=== PATIENT | male | born 1975 | race American Indian/Alaskan Native ===

== ENCOUNTER 2018-06-28 10:31 | Emergency (ER) | payer SELFPAY ==
[2018-06-28 10:46] VITALS: BP 117/86
[2018-06-28] MEDS ORDERED: IBUPROFEN PO ONE (12:04)
[2018-06-28] MEDS ORDERED: CLEOCIN PO ONE (12:04)
--- NOTE | 2018-06-28 12:10 | Emergency Department Report ---
ED Extremity Problem HPI - General Chief complaint: Extremity Injury, Lower Stated complaint: FOOT PAIN/SWELLING Time Seen by Provider: 06/28/18 11:54 Source: patient Mode of arrival: Ambulatory Limitations: No Limitations - History of Present Illness Initial comments: Patient is a 43-year-old [place] male who is presenting with left foot pain for the last 3 days. Patient states that the left foot started swelling. Patient has tried putting [place] on his feet with no relief. Patient states pain is 6 out of 10 in severity and is aching throbbing. Patient's right foot is within normal limits. Patient denies trauma fevers chills nausea vomiting at this time. - Related Data Previous Rx's Medication Instructions Recorded Last Taken Type Clindamycin [Clindamycin CAP] 300 mg PO Q8H 7 Days cap 06/28/18 Unknown Rx HYDROcodone/APAP 5-325 [[place] 1 each PO Q4HR PRN #12 tablet 06/28/18 Unknown Rx 5/325] Ibuprofen [Motrin] 600 mg PO Q8H PRN #20 tablet 06/28/18 Unknown Rx Allergies Allergy/AdvReac Type Severity Reaction Status Date / Time No Known Allergies Allergy Unverified 06/28/18 10:46 ED Review of Systems ROS: Stated complaint: FOOT PAIN/SWELLING Other details as noted in HPI Comment: All other systems reviewed and negative ED Past Medical Hx - Past Medical History Previous Medical History?: No - Surgical History Past Surgical History?: No - Social History Smoking Status: Current Every Day Smoker Substance Use Type: None - Medications Home Medications: Home Medications Medication Instructions Recorded Confirmed Last Taken Type Clindamycin [Clindamycin CAP] 300 mg PO Q8H 7 Days cap 06/28/18 Unknown Rx HYDROcodone/APAP 5-325 [[place] 1 each PO Q4HR PRN #12 tablet 06/28/18 Unknown Rx 5/325] Ibuprofen [Motrin] 600 mg PO Q8H PRN #20 tablet 06/28/18 Unknown Rx ED Physical Exam - General Limitations: No Limitations General appearance: alert, in no apparent distress - Head Head exam: Present: atraumatic, normocephalic - Eye Eye exam: Present: normal appearance - ENT ENT exam: Present: mucous membranes moist - Neck Neck exam: Present: normal inspection - Respiratory Respiratory exam: Present: normal lung sounds bilaterally. Absent: respiratory distress, wheezes, rales - Cardiovascular Cardiovascular Exam: Present: regular rate, normal rhythm. Absent: systolic murmur, diastolic murmur, rubs, gallop - GI/Abdominal GI/Abdominal exam: Present: soft, normal bowel sounds. Absent: distended, tenderness, guarding, rebound - Rectal Rectal exam: Present: deferred - Extremities Exam Extremities exam: Present: normal inspection, tenderness (left foot shows some swelling and erythema to the mid foot as well. Patient has significant athlete's foot at the toes. The skin is dry and there are several small fissures present.) - Back Exam Back exam: Present: normal inspection - Neurological Exam Neurological exam: Present: alert, oriented X3 - Psychiatric Psychiatric exam: Present: normal affect, normal mood - Skin Skin exam: Present: warm, dry, intact, normal color. Absent: rash ED Course Vital Signs 06/28/18 10:44 Temperature 98.0 F Pulse Rate 86 Respiratory 19 Rate Blood Pressure 117/86 O2 Sat by Pulse 98 Oximetry ED Medical Decision Making - Medical Decision Making Patient's likely with a left foot cellulitis secondary to bacterial infection which most likely a from the dry scaly skin the patient has especially in the web spaces. Patient be started on clindamycin and pain meds will be discharged home. Critical care attestation.: If time is entered above; I have spent that time in minutes in the direct care of this critically ill patient, excluding procedure time. ED Disposition Clinical Impression: Cellulitis of foot Disposition: DC-01 TO HOME OR SELFCARE Is pt being admited?: No Does the pt Need Aspirin: No Condition: Stable Instructions: Cellulitis (ED) Referrals: NICOLE ECHOLS MD [Primary Care Provider] - 3-5 Days CECIL KRAMER MD [Staff Physician] - 3-5 Days Time of Disposition: 12:10
== END 2018-06-28 13:22 | disposition home or self-care (01) ==
LOC: ED 10:31
DX: L03.115 Cellulitis of right lower limb (principal); F17.200 Nicotine dependence, unspecified, uncomplicated
CPT/HCPCS: 99283